=== PATIENT | female | born 1990 | race Caucasian/White ===

== ENCOUNTER 2023-08-24 21:39 | Emergency (ER) | payer OTHER ==
[2023-08-24 21:51] VITALS: BP 122/82; PULSE 97; RESP 18; TEMP 98.9; BMI 22.7
[2023-08-24 23:43] LABS: THROAT:GRP A STREP DETECTED (NOTDETECTED)
== END 2023-08-24 23:22 | disposition home or self-care (01) ==
LOC: JER 21:39 → JERFT 21:39
DX: J02.0 Streptococcal pharyngitis (principal); R11.0 Nausea; Z20.822 Contact with and (suspected) exposure to COVID-19
CPT/HCPCS: 0241U-QW; 87651; 99283-25